=== PATIENT | female | born 1955 | race Caucasian/White ===

== ENCOUNTER 2017-03-01 07:29 | Observation (INO) | payer BC ==
[~2017-03-01] VITALS: Ht 157.5 cm; Wt 57.7 kg
--- NOTE | ~2017-03-01 | ECHO ---
Transthoracic Echocardiography Report (TTE) Demographics Patient Name MIRACLE KRYSTINA Zachariah Date of Study 03/01/2017 Patient Number [id number] Visit Number [id number] Date of 1955 Room Number G6223 Accession Number [id number] Gender Female Age 61 year(s) Referring EnderPauline Ervin Lashell [employer] P[employer]itt Physician GAURI Joe MD Physician Interpreting Yaima Paez Legal Examiner Physician Supervising Ordering Physician Yaima Paez MD/PRISCILA SAUER Nurse Stress Bpm Analyst Conclusions Contractility Score Summary Normal Left Ventricular contractility was noted. Summary The estimated left ventricular ejection fraction is 55-60%. Diastolic assessment reveals Grade I diastolic dysfunction. The interatrial septum appears aneurysmal. Informed consent was obtained, bubble study was done, there is no evidence for a PFO or ASD. Prominent Chiari network seen in the right atrium. Procedure Type of Study TTE procedure:2D Echocardiogram, M-Mode, Doppler , Color Doppler. Procedure Date Date: 03/01/2017 Start: 11:46 AM Study Location: Inpatient Portable Technical Quality: Adequate visualization Indications:TIA. Appropriate Use Criteria: 9 Patient Status: Routine HR: 80 bpm BP: 161/91 mmHg Allergies - No known allergies. M-Mode/2D Measurements LV Diastolic Dimension: 4.23 cm LV Systolic Dimension: 2.57 cm LV Septum Diastolic: 0.7 cm LV PW Diastolic: 0.82 cm AO Root Dimension: 2.5 cm Cardiac Output: 4.4 l/min LA Dimension: 2.1 cm LVOT: 1.9 cm LVOT VTI: 19.4 cm RV Base: 2.66 cm LV Stroke volume: 54.98 ml RV Length: 5.56 cm TAPSE: 2.04 cm TDI-S': 14.3 cm/s Doppler Measurements AV Peak Velocity: 1.27 m/s MV Peak E-Wave: 0.58 m/s AV Peak Gradient: 6.45 mmHg MV Peak A-Wave: 1.06 m/s AV Mean Gradient: 4 mmHg MV E/A Ratio: 0.55 LVOT Peak Velocity: 0.97 m/s MV P1/2t: 92 msec TR Gradient:7.18 mmHg PV Peak Velocity: 0.93 m/s Estimated RAP:3 mmHg PV Peak Gradient: 3.49 mmHg Estimated RVSP: 10 mmHg Estimated PASP: 10.18 mmHg E' Septal Velocity: 0.08 m/s A' Septal Velocity: 0.12 m/s E' Lateral Velocity: 0.08 m/s A' Lateral Velocity: 0.13 m/s Findings Left Ventricle The left ventricle is normal in size. Diastolic assessment reveals Grade I diastolic dysfunction. Right Ventricle Normal right ventricle structure and function. Left Atrium Normal left atrial size. The interatrial septum appears aneurysmal. Informed consent was obtained, bubble study was done, there is no evidence for a PFO or ASD. Right Atrium Normal right atrial size. IVC measures 1.28 cm with inspiratory collapse. Aneurysmal interatrial septum. Prominent Chiari network seen in the right atrium. Mitral Valve Trivial mitral regurgitation by color Doppler. Mild mitral annular calcification. Aortic Valve The aortic valve is mildly sclerotic. Tricuspid Valve Trivial tricuspid regurgitation by color Doppler. Pulmonic Valve Normal pulmonic valve structure and function. Pericardial Effusion No evidence of pericardial effusion. Miscellaneous Visualized portions of the aortic root and ascending aorta appear normal in size. Pleural Effusion No evidence of pleural effusion. Contractility Score LV regional wall motion:(0-Non visualized 1-Normal 2-Hypokinesis 3-Akinesis 4-Dyskinesis 5-Aneurysm) Signature dtt: Philippe Erwin (cardio) dtd: 03/01/17 1146 Physician Self Edit
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
--- NOTE | ~2017-03-01 | HP ---
PATIENT'S NAME: KRYSTINA RAUSCH I [facility] AGE: 61 Y [address] ROOM: G6[address] [place], [place] [address] LOCATION: [facility] ADMIT DATE: 03/01/2017 History & Physical DISCHARGE DATE: FAMILY PHYSICIAN: BETTY CYR MD ATTENDING PHYSICIAN: Mary Hartley DATE OF SERVICE: CHIEF COMPLAINT: Amnesia. HISTORY OF PRESENT ILLNESS: The patient is a 61-year-old female, who was acting her normal self this morning. She woke up and got ready for work. She got into the car to drive to work. The last thing she remembers is getting into the car to drive to work. Her drive to work typically takes 15 minutes, but she showed up to work about an hour late. When she arrived at work, she was acting unusual, and her co-workers called an ambulance and she was taken to the Emergency Room. The paramedics described some right facial drooping and slurred speech, but this was not noted by the Emergency Room physician who evaluated her in the ER. Her arrived to the ER shortly after she did. He reported she had acted like normal in the morning prior to leaving for work. When he was in the ER with her, he felt like she was back to her baseline. The last thing she remembers is getting into the car to leave for work. After that, she does recall being in the Emergency Room and being brought up to her hospital room. Therefore, she is missing about a one hour period of time. She does have a history of insomnia. She has used Ambien in the past, but not recently. She is on amitriptyline 25 mg at bedtime for the last couple of years. She has never had any previous amnesia events. She denies any recent head injuries. She does have a history of migraines, but has not required her p.r.n. Imitrex for quite some time. In the Emergency Room, the ER physician discussed the case with Dr. Matthews, who felt this was likely transient global amnesia. It was also discussed with her caddy master, Dr. Erwin, who recommended she be admitted for monitoring, telemetry, and an echocardiogram. She had a cardiac workup in December of this year that was apparently normal, done for PVCs. REVIEW OF SYSTEMS: She denies any fevers, chills, cough, cold, or flu-like symptoms. She denies any chest pain, heart palpitations, or shortness of breath. She denies any nausea, vomiting, diarrhea, or constipation. There is a one-hour period of time that she does not remember any events. She denies any recent headache. She denies any bowel or bladder changes. She denies any numbness, tingling, or other neurologic symptoms at this time. PATIENT'S NAME: KRYSTINA RAUSCH I [facility] AGE: 61 Y [address] ROOM: [address] [place], [place] [address] LOCATION: [facility] ADMIT DATE: 03/01/2017 History & Physical DISCHARGE DATE: FAMILY PHYSICIAN: BETTY CYR MD ATTENDING PHYSICIAN: Mary Hartley ALLERGIES: NONE. MEDICATIONS: 1. Amitriptyline 25 mg at bedtime. 2. Crestor 10 mg at bedtime. 3. Imitrex 50 mg p.r.n. migraine. 4. Lisinopril 2.5 mg daily. 5. Zolpidem 10 mg at bedtime p.r.n. insomnia, which she admits she has not taken for quite some time. FAMILY HISTORY: Heart disease in her mother at age 60s. PAST MEDICAL HISTORY: 1. Hypertension. 2. Hyperlipidemia. 3. Migraine. 4. PVCs. 5. Insomnia. SURGICAL HISTORY: 1. Colonoscopy in 2008. 2. Tonsillectomy. 3. [place] tooth extraction. 4. Cardiac catheterization was normal in 2014. SOCIAL HISTORY: She admits to drinking one alcoholic beverage on an average per week. 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 A former smoker. since 1981. She lives at home with her . Two children have moved out of the home; one in [place] and one in [place]. PHYSICAL EXAMINATION: VITAL SIGNS: Stable. Please see the Nursing record. GENERAL: She is awake, alert, and oriented. No signs of distress. NEUROLOGICAL: Cranial nerves II through XII are grossly intact. No focal neurologic deficits were noted. No facial drooping or slurred speech was noted. She has good strength and symmetric throughout all facial muscles as well as her upper extremities with shoulder shrug, biceps and triceps strength, supination and pronation strength, and hand newspaper stuffer strength. She also has symmetric strength in the bilateral lower extremities with hip flexor, foot plantar flexor, and dorsiflexor strength. EYES: Conjunctivae were clear. PERRLA and EOMI. PATIENT'S NAME: KRYSTINA RAUSCH I [facility] AGE: 61 Y [address] ROOM: [place] [address] LOCATION: [facility] ADMIT DATE: 03/01/2017 History & Physical DISCHARGE DATE: FAMILY PHYSICIAN: BETTY CYR MD ATTENDING PHYSICIAN: Mary Hartley MOUTH: Mucous membranes are moist. HEART: Regular rate and rhythm without murmur. LUNGS: Clear to auscultation throughout. No crackles or wheezing was noted. ABDOMEN: Soft, nontender, and nondistended. No masses were palpated. No guarding or rebound tenderness. SKIN: No evidence of any rash. PSYCHIATRIC: Appropriate mood and affect. LABORATORY DATA: Free T4 was 1.2 and TSH was 0.824. UA was negative. Troponin is less than 0.04. ProBNP was slightly elevated at 192. WBC of 7.9, hemoglobin of 14.9, hematocrit of 45.6, and platelets of 197. Sodium is 138, potassium is 4.7, chloride is 106, bicarbonate is 26, BUN is 11, and creatinine is 0.9. GFR was greater than 60. PTT of 29, PT of 10.2, and INR of 0.97. ESR is 2, CRP is less than 0.29, and phosphorus is 3.0. EKG showed sinus rhythm with PVCs in a pattern of bigeminy and possible right atrial abnormality with LAD. CT of the head without contrast was negative. I had ordered an MRI of the brain with and without contrast, which the patient declined. ASSESSMENT AND PLAN: Transient global amnesia. Neurology has been consulted, and I appreciate Dr. Matthews's input. Cardiology was also consulted, and telemetry and echocardiogram have been done. As long as this looks good, plan will be to discharge the patient in the morning. Patient education material was given on transient global amnesia. While she is still in the hospital, we will have neuro checks every two hours. We will have her monitored on telemetry. MD YANA WEEMS/modl /[id number] D: [id number] T: [id number] HISTORY & PHYSICAL
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
--- NOTE | ~2017-03-01 | CON ---
PATIENT'S NAME: KRYSTINA RAUSCH I [facility] AGE: 61 Y [address] ROOM: [place] [address] LOCATION: [facility] ADMIT DATE: 03/01/2017 Consultation DISCHARGE DATE: 03/02/2017 FAMILY PHYSICIAN: Trey White MD ATTENDING PHYSICIAN: Mary Hartley REFERRING PHYSICIAN: Philippe Singh MD REASON FOR CONSULT: TIA symptoms. HISTORY OF PRESENT ILLNESS: This is a 61-year-old female, well known to Dr. Singh, with a history of PVCs, hypertension, and hyperlipidemia. She was in her usual state of health on the morning of admission when she got up, got ready for work, left the house around 6 o'clock. She usually gets to work around 0620 hours. She did not get there until 7 o'clock in the morning and coworkers noticed that she was confused, she did not know how she got there. She has left her garage door open according to her . She now is reoriented and states that she feels fine. She had an image of the brain that was negative for any acute processes going on. Her initial EKG in the ER which is showing a regular sinus rhythm with frequent PVCs. She denies a history of chest pain or shortness of breath. No palpitations, lightheadedness, or dizziness. No presyncope or syncopal episodes. There has been no report of fall, and no one has witnessed any seizure activity. PAST MEDICAL HISTORY: 1. Migraines. 2. Premature ventricular contractions. 3. Hypertension. 4. Hypercholesterolemia. PAST SURGICAL HISTORY: She had a colonoscopy for screening that was negative. ALLERGIES: NO KNOWN DRUG ALLERGIES. HOME MEDICATIONS: 1. Lisinopril 2.5 mg daily. 2. Lipitor 20 mg daily. 3. Amitriptyline 25 mg at h.s. SOCIAL HISTORY: She is . She has a daughter and a son who are alive and well. She works with the [employer]. She enjoys reading, walking, and gardening. 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 She has PATIENT'S NAME: KRYSTINA RAUSCH I [facility] AGE: 61 Y [address] ROOM: [place] [address] LOCATION: [facility] ADMIT DATE: 03/01/2017 Consultation DISCHARGE DATE: 03/02/2017 FAMILY PHYSICIAN: Trey White MD ATTENDING PHYSICIAN: Mary Hartley a history of smoking about 4 cigarettes a day, but does not do it very often. She does not use illicit drugs and has about 4 cups of coffee a day. She exercises on a routine basis. FAMILY HISTORY: Mother had coronary artery disease, hypertension, atrial fibrillation, and congestive heart failure. She also had open heart surgery and a pacemaker. She at the age of 84. Father in his 50s from a car-train accident. She had a sister in a motor vehicle accident and another sister who with COPD complications. REVIEW OF SYSTEMS: GENERAL: She denies complaints of fatigue. HEENT: Head: No current complaints of headache. Eyes: No blurred vision or double vision. Ears: No problems with hearing. Nose: No epistaxis or rhinorrhea. Mouth: No gingival bleeding. Throat: Denies sore throat, hoarseness, or difficulty swallowing. PULMONARY: Denies cough or hemoptysis. GASTROINTESTINAL: Negative for nausea, vomiting, or diarrhea. No melena or hematochezia. GENITOURINARY: Negative for urinary frequency, urgency, or urinary tract infections. DERMATOLOGIC: No hair, nail, or skin changes that are concerning. PSYCHIATRIC: She has had problems with anxiety in the past after losing her sister, but nothing current. ENDOCRINE: No history of hyper or hypothyroidism or diabetes mellitus. PHYSICAL EXAMINATION: VITAL SIGNS: Her height is 5 feet 2 inches, her weight is 126 pounds. Blood pressure is 128/70, heart rate is 78, and respirations are 18. GENERAL: She is alert and oriented. Answers questions appropriately. SKIN: Warm, dry, and pink. HEENT: Pupils equal, round, and react briskly. NECK: Soft and supple. No lymphadenopathy or thyromegaly. JVD is flat. LUNGS: Lung sounds are clear without evidence of wheezes, rales, or rhonchi. CV: Now is regular with a normal S1 and S2. ABDOMEN: Soft. Bowel sounds are present. EXTREMITIES: No peripheral edema. DIAGNOSTIC DATA: Cardiac enzymes are negative. CT of the head was negative. Hemoglobin is 14.9. BUN 11, creatinine 0.9, sodium 138, and potassium 4.7. UA was normal. TSH 0.824. Free T4 1.2. ASSESSMENT: PATIENT'S NAME: KRYSTINA RAUSCH I [facility] AGE: 61 Y [address] ROOM: [address] [address] LOCATION: [facility] ADMIT DATE: 03/01/2017 Consultation DISCHARGE DATE: 03/02/2017 FAMILY PHYSICIAN: Trey White MD ATTENDING PHYSICIAN: Mary Hartley 1. Transient ischemic attack symptomatology. We will plan an echocardiogram and continue to monitor her per Telemetry. 2. Hypertension. She will continue her current home medications and utilize a low-sodium diet. The assessment, plan, history of present illness, and physical exam are per Dr. Singh. We would like to thank Dr. Mary Hartley for allowing us to participate in the patient's care. NANNETTE VAZQUEZ APRN FOR [facility] SINGH MD TGP/modl /[id number] d: 03/02/[id number] t: 03/25/17 0920, CONSULTATION REPORT
[2017-03-01 07:51] LABS: BASOPHIL # 0.1 K/uL (0.0-0.2); BASOPHIL % 0.8 %; EOSINOPHIL # 0.1 K/uL (0.0-0.5); EOSINOPHIL % 0.9 %; HEMATOCRIT 45.6 % (33.0-46.0); HEMOGLOBIN 14.9 g/dL (10.0-15.0); IMMATURE GRANULOCYTE % 0.4 %; LYMPHOCYTE # 1.6 K/uL (0.8-4.0); LYMPHOCYTE % 20.4 %; MCH 30.3 pg (27.0-34.0); MCHC 32.7 gm/dL (32.0-36.5); MCV 92.9 fl (83.0-98.0); MONOCYTE # 0.6 K/uL (0.0-1.0); MONOCYTE % 7.2 %; MPV 9.7 fl (9.4-12.4); NEUTROPHIL # (ANC) 5.6 K/uL (1.8-7.8); NEUTROPHIL % 70.3 %; NRBC % 0 /100WBC (0-0.00); PLATELET COUNT 197 K/uL (150-450); RBC 4.91 M/uL (3.50-5.50); RDW-CV 12.6 % (11.9-14.6); WBC 7.9 K/uL (4.0-11.0)
[2017-03-01 07:58] LABS: INR - (THERAPEUTIC) 0.97 (0.92-1.07); PROTIME 10.2 SECONDS (9.8-11.4); PTT 29 SECONDS (25-32)
[2017-03-01 08:11] LABS: ALBUMIN 3.8 gm/dL (3.5-5.0); ANION GAP 10.7 (10.0-19.0); BLOOD UREA NITROGEN 11 mg/dL (6-24); CHLORIDE 106 mMol/L (96-110); CO2 26 mMol/L (22-32); CREATININE 0.9 mg/dL (0.5-1.1); ESTIMATED GFR (MDRD EQUATION) > 60; POTASSIUM 4.7 mMol/L (3.7-5.1); SODIUM 138 mMol/L (135-145)
[2017-03-01 09:22] LABS: BILIRUBIN URINE NEGATIVE (NEGATIVE); BLOOD URINE NEGATIVE /UL (NEGATIVE); COLOR URINE YELLOW (YELLOW); GLUCOSE URINE NEGATIVE (NEGATIVE); KETONE URINE NEGATIVE (NEGATIVE); LEUKOCYTES URINE NEGATIVE /UL (NEGATIVE); NITRITE URINE NEGATIVE (NEGATIVE); PROTEIN URINE NEGATIVE (NEGATIVE); SPEC GRAVITY URINE 1.005 (1.003-1.035); TURBIDITY URINE CLEAR (CLEAR); UROBILINOGEN URINE NORMAL (NORMAL)
[2017-03-01] MEDS ORDERED: CRESTOR10 MG PO (11:10)
[2017-03-01] MEDS ORDERED: ELAVIL25 MG PO (11:10)
[2017-03-01] MEDS ORDERED: ZESTRIL2.5 MG PO (11:10)
[2017-03-01] MEDS ORDERED: IMITREX50 MG PO (11:11)
[2017-03-01] MEDS ORDERED: TYLENOL EXTRA500 MG PO (11:12)
[2017-03-01] MEDS ORDERED: AMBIEN10 MG PO (11:12)
[2017-03-01] MEDS ORDERED: ALLEGRA180 MG PO (11:13)
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
--- NOTE | 2017-03-01 14:29 | NUR ---
Significant Event:PT IS AAOX3. NO C/O NUMBNESS, TINGLING, DOUBLE OR BLURRED VISION. STILL UNABLE TO REMEMBER CAR RIDE BETWEEN HOME AND WORK. LUNG SOUNDS ARE CLEAR. BS ACTIVE. IV RIGHT HAND SL'D. ECHO WITH BUBBLE STUDY DONE TODAY. Follow up:
--- NOTE | 2017-03-02 03:29 | NUR ---
Significant Event: A&Ox3. Denies N&T. Denies pain. Up SBA to independent in room. On tele SR. VSS. SBP 130-140s. RA lungs clear. IV to R) hand SL. Follow up: Home today
--- NOTE | 2017-03-02 14:43 | NUR ---
Significant Event: Patient discharged to home. Left NTU at 0920 per w/c accompanied by transport staff and . taken to dr. devine office (cardiology) for zio patch placement. to be driven home per private vehicle by .
== END 2017-03-02 09:15 | disposition disaster alternative care site (69) ==
LOC: GMED 07:29 → GNTU 09:35
PROVIDERS: Emergency Medicine; ADMIT Family Medicine
DX: G45.4 Transient global amnesia (principal); I25.10 Atherosclerotic heart disease of native coronary artery without angina pectoris; I10 Essential (primary) hypertension; I49.3 Ventricular premature depolarization; E78.5 Hyperlipidemia, unspecified; G43.909 Migraine, unspecified, not intractable, without status migrainosus; G47.00 Insomnia, unspecified; Z98.890 Other specified postprocedural states; Z87.891 Personal history of nicotine dependence; Z79.899 Other long term (current) drug therapy
CPT/HCPCS: G0378

== ENCOUNTER → 2017-03-01 | Outpatient (CLI) | payer BC ==
[~2017-03-01] MED LIST: ALLEGRA180 MG PO; AMBIEN10 MG PO; CRESTOR10 MG PO; ELAVIL25 MG PO; IMITREX50 MG PO; TYLENOL EXTRA500 MG PO; ZESTRIL2.5 MG PO
== END | disposition disaster alternative care site (69) ==
LOC: GAMB 07:03
DX: I63.9 Cerebral infarction, unspecified (principal); I10 Essential (primary) hypertension; R47.81 Slurred speech; R41.0 Disorientation, unspecified; Z79.899 Other long term (current) drug therapy
CPT/HCPCS: A0425; A0427